=== PATIENT | male | born 1945 | race Caucasian/White ===

== ENCOUNTER 2017-03-26 23:13 | Emergency (ER) | payer MEDICARE, OTHER ==
[~2017-03-26] VITALS: Ht 188 cm; Wt 74.0 kg
[~2017-03-26 23:13] MED LIST: ADV250 IH; BENZ1TAB10 PO; COMBISP IH; DIGO125T PO; DIVA500T35 PO; FLUT16H NASAL; FURO40 PO; LEVE250T55 PO; METO50 PO; MONT10TA21 PO; MULT-1181 PO; QUET25TA PO; SERT100T12 PO; SINE10100 PO; TIOT185 IH; TRIF10 PO; VITAD1000 PO
[2017-03-26] MEDS ORDERED: 0.9% SODIUM CHLORIDE 5 ML NEB SOLUTION NEB ONE (23:29)
[2017-03-26] MEDS ORDERED: IPRATROPIUM BROMIDE 0.5 MG/2.5 ML NEB SOLUTION NEB ONE (23:30)
[2017-03-26] MEDS ORDERED: ALBUTEROL SULFATE 5 MG/ML 20 ML NEB SOLN [BULK] NEB ONE (23:30)
[2017-03-27] MEDS ORDERED: IPRATROPIUM BROMIDE 0.5 MG/2.5 ML NEB SOLUTION NEB ONE (01:00)
[2017-03-27] MEDS ORDERED: ALBUTEROL SULFATE 5 MG/ML 20 ML NEB SOLN [BULK] NEB ONE (01:00)
[2017-03-27] MEDS ORDERED: 0.9% SODIUM CHLORIDE 5 ML NEB SOLUTION NEB ONE (01:19)
[2017-03-27 02:20] VITALS: BP 133/73
[2017-03-27 06:53] LABS: GLUCOSE,POINT OF CARE 86 MG/DL (70-110)
== END 2017-03-27 02:51 | disposition home or self-care (01) ==
LOC: EMS 23:15
DX: J44.9 Chronic obstructive pulmonary disease, unspecified (principal); J45.909 Unspecified asthma, uncomplicated; I25.10 Atherosclerotic heart disease of native coronary artery without angina pectoris; I11.9 Hypertensive heart disease without heart failure; I48.91 Unspecified atrial fibrillation; F17.210 Nicotine dependence, cigarettes, uncomplicated; Z88.8 Allergy status to other drugs, medicaments and biological substances
CPT/HCPCS: 82962; 94644; 94645; 99285